=== PATIENT | male | born 1980 | race Caucasian/White ===

== ENCOUNTER 2018-06-01 15:48 | Emergency (ER) | payer OTHER ==
[~2018-06-01] VITALS: Ht 172.7 cm; Wt 84.1 kg
[2018-06-01 15:55] VITALS: TEMP 98
[2018-06-01] MEDS ORDERED: KLONOPIN 1MG1 MG PO (16:11)
[2018-06-01] MEDS ORDERED: VENLAFAXINE225 MG PO (16:11)
[2018-06-01 17:32] VITALS: BP 119/90; PULSE 75
== END 2018-06-01 17:34 | disposition home or self-care (01) ==
LOC: COL.ER 15:48
DX: M54.16 Radiculopathy, lumbar region (principal); F41.9 Anxiety disorder, unspecified
CPT/HCPCS: J1100; J1170

== ENCOUNTER 2018-06-05 18:26 | Emergency (ER) | payer OTHER ==
[~2018-06-05] VITALS: Ht 172.7 cm; Wt 81.8 kg
[~2018-06-05 18:26] MED LIST: KLONOPIN 1MG1 MG PO; VENLAFAXINE225 MG PO
[2018-06-05 18:28] VITALS: BP 115/69; TEMP 98.7
[2018-06-05] MEDS ORDERED: LIDODERM 5% PATC1 EA TP (19:33)
[2018-06-05 20:00] VITALS: PULSE 73
== END 2018-06-05 20:03 | disposition home or self-care (01) ==
LOC: COL.ER 18:26
DX: G89.29 Other chronic pain (principal); M54.5 Low back pain; F43.10 Post-traumatic stress disorder, unspecified; F41.9 Anxiety disorder, unspecified; Z87.891 Personal history of nicotine dependence
CPT/HCPCS: J1170; J1885